=== PATIENT | female | born 1950 | race Caucasian/White ===

== ENCOUNTER 2017-01-04 06:26 | Day surgery (SDC) | payer MEDICARE, MEDICAID | END 2017-01-04 09:15 | disposition home or self-care (01) | LOC: DS 06:26 → EDSTATUS 11:56 | PROVIDERS: ATTEND Surgery | DX: K62.1 Rectal polyp (principal); K64.8 Other hemorrhoids; K64.4 Residual hemorrhoidal skin tags; K29.80 Duodenitis without bleeding; K44.9 Diaphragmatic hernia without obstruction or gangrene; K22.70 Barrett's esophagus without dysplasia; I10 Essential (primary) hypertension; F41.9 Anxiety disorder, unspecified; Z90.710 Acquired absence of both cervix and uterus; Z90.49 Acquired absence of other specified parts of digestive tract; E89.0 Postprocedural hypothyroidism; E66.9 Obesity, unspecified | CPT/HCPCS: 88305-TC; 88312-TC; 88313-TC; 88342; J2704; J3490 ==

== ENCOUNTER 2017-06-16 11:50 | Emergency (ER) | payer MEDICARE, MEDICAID ==
[~2017-06-16] VITALS: Ht 157.5 cm; Wt 86.2 kg
--- NOTE | 2017-06-16 11:52 | NUR ---
pt ambulatory to er bed 12. c/o sob, cough and congestion x 1 week. finished a course of antibiotic, no relief. wheezing upon auscultation. stable vitals. awaiting md tierney.
--- NOTE | 2017-06-16 13:16 | NUR ---
dr triana at bedside for eval.
[2017-06-16] MEDS ORDERED: ALBUTEROL FS 2.5 MG/3 ML VIAL.NEB ONE (13:27)
--- NOTE | 2017-06-16 13:28 | NUR ---
rt at bedside for breathing treatment.
[2017-06-16] MEDS ORDERED: ALBUTEROL FS 2.5 MG/0.5 ML VIAL.NEB NEB ONE (13:30)
--- NOTE | 2017-06-16 13:30 | NUR ---
radiology at bedside for chest xray.
--- NOTE | 2017-06-16 14:06 | NUR ---
Patient discharged to home in stable condition. Written and verbal after care instructions given. Patient verbalizes understanding of instruction.
[2017-06-16 14:07] VITALS: BP 117/80
== END 2017-06-16 14:08 | disposition home or self-care (01) ==
LOC: ER 11:56
DX: J20.9 Acute bronchitis, unspecified (principal); I10 Essential (primary) hypertension; Z90.710 Acquired absence of both cervix and uterus; E89.0 Postprocedural hypothyroidism
CPT/HCPCS: 71045-TC; A4606; Z7610